=== PATIENT | male | born 1935 | race Hispanic/Latino ===

== ENCOUNTER 2020-01-11 15:53 | Inpatient (IN) | payer MEDICARE, OTHER ==
[~2020-01-11] VITALS: Ht 170.2 cm; Wt 103.9 kg
[2020-01-11] MEDS: CEFTRIAXONE SOD 1 GM/NS 50 ML 50 ML IV SCH (16:40)
[2020-01-11 16:45] LABS: EOSINOPHILS % 1.1 % (0.0-6.0); HEMATOCRIT 43.9 % (38.2-49.6); HEMOGLOBIN 14.8 g/dL (14.0-18.0); LYMPHOCYTES # (AUTO) 0.7 (1.0-3.2); LYMPHOCYTES % 14.6 % (18.0-39.1); MEAN CORPUSCULAR HEMOGLOBIN 30.3 pg (28-32); MEAN CORPUSCULAR HGB CONC 33.7 g/dL (31-35); MEAN CORPUSCULAR VOLUME 89.8 fL (81-99); NEUTROPHILS # (AUTO) 3.4 (2.1-6.9); NEUTROPHILS % 75.9 % (38.7-80.0); PLATELET COUNT 114 x10e3/uL (140-360); RED BLOOD COUNT 4.89 x10e6/uL (4.3-5.7); RED CELL DISTRIBUTION WIDTH 13.4 % (11.7-14.4)
[2020-01-11 16:46] LABS: EOSINOPHILS # (AUTO) 0.1 (0.0-0.4); MONOCYTES # (AUTO) 0.4 (0.2-0.8)
[2020-01-11 16:59] LABS: INR 1.09; PROTHROMBIN TIME 14.8 seconds (11.9-14.5)
[2020-01-11 17:00] LABS: PARTIAL THROMBOPLASTIN TIME 30.4 seconds (23.8-35.5)
[2020-01-11] MEDS: AZITHROMYCIN 500MG/NS 250 ML 250 ML IV SCH (17:00)
[2020-01-11 17:07] LABS: ALANINE AMINOTRANSFERASE 35 IU/L (0-55); ALBUMIN 3.7 g/dL (3.5-5.0); ALBUMIN/GLOBULIN RATIO 1.2 (0.8-2.0); ALKALINE PHOSPHATASE 82 IU/L (40-150); ANION GAP 11.1 mmol/L (8-16); BLOOD UREA NITROGEN 9 mg/dL (7-26); BUN/CREATININE RATIO 11 (6-25); CALCIUM 9.1 mg/dL (8.4-10.2); CARBON DIOXIDE 29 mmol/L (22-29); CHLORIDE 103 mmol/L (98-107); CREATINE KINASE 242 IU/L (30-200); CREATININE, SERUM 0.82 mg/dL (0.72-1.25); EST GLOMERULAR FILTRATION RATE > 60 ML/MIN (60-); GLUCOSE 102 mg/dL (74-118); POTASSIUM 4.1 mmol/L (3.5-5.1); SODIUM 139 mmol/L (136-145)
[2020-01-11 17:25] LABS: BILIRUBIN,URINE NEGATIVE (NEGATIVE); CLARITY,URINE SL CLOUDY (CLEAR); COLOR,URINE YELLOW (YELLOW); KETONES,URINE NEGATIVE (NEGATIVE); LEUKOCYTE ESTERASE ,URINE NEGATIVE (NEGATIVE); NITRITE,URINE NEGATIVE (NEGATIVE); PROTEIN,URINE DIPSTICK NEGATIVE (NEGATIVE); URINE UROBILINOGEN 0.2 mg/dL (0.2 - 1)
--- NOTE | 2020-01-11 17:25 | Diagnostic Imaging Report ---
EXAMINATION: CHEST SINGLE (PORTABLE) INDICATION: Shortness of breath COMPARISON: None FINDINGS: AP view TUBES and LINES: None. LUNGS/PLEURA: Lungs are well inflated. There is left basilar opacity is likely atelectasis.. There is no pleural effusion or pneumothorax. HEART AND MEDIASTINUM: The cardiomediastinal silhouette is unremarkable. BONES AND SOFT TISSUES: No acute osseous lesion. Soft tissues are unremarkable. UPPER ABDOMEN: No free air under the diaphragm. IMPRESSION: Left basilar opacity is likely atelectasis. Signed by: Jovan Bates MD on 01/11/2020 5:22 PM
[2020-01-11] MEDS ORDERED: ALBUTEROL SULFATE HFA 8GM INHALATION AEROSOL INH PRN (17:30)
[2020-01-11 17:38] LABS: WBC,URINE (MAN) 0-5 /HPF (0-5)
[2020-01-11 17:39] LABS: BACTERIA,URINE RARE /HPF; EPITHELIAL CELLS,URINE FEW /LPF
[2020-01-11] MEDS ORDERED: ENOXAPARIN SODIUM INJ 100 MG/ML SYR SC ONE (19:15)
--- NOTE | 2020-01-11 19:57 | Emergency Department Note ---
History of Present Illnes History of Present Illness Chief Complaint: COVID PUI History of Present Illness This is a 84 year old male PATIENT IN FROM HOME WITH COMPLAINTS OF SHORTNESS OF BREATH, COUGH, AND CP X 2 DAYS; RATES PAIN 5/10. PATIENT TACHYPNEIC IN TRIAGE, ALERT AND ORIENTED, AMBULATORY WITHOUT ASSISTANCE. Historian: Patient Arrival Mode: Car Vac Press Operator Required: Yes Onset (how long ago): day(s) (2) Location: CHEST Quality: PAIN Radiation: Reports non-radiation Severity: moderate Onset quality: gradual Timing of current episode: constant Progression: unchanged Chronicity: new Context: Reports recent illness Relieving factors: none Exacerbating factors: none Associated symptoms: Reports chest pain, Reports cough, Reports shortness of breath Treatments prior to arrival: none (JAMES OLIVEROS MD) Past Medical/Family History Physician Review I have reviewed the patient's past medical and family history. Any updates have been documented here. (JAMES OLIVEROS MD) Past Medical History Recent Fever: Yes Clinical Suspicion of Infectio: Yes New/Unexplained Change in Ment: No Past Medical History: Hypertension, Diabetes, CHF, AL, Asthma, GERD, Hyperlipedemia Other Medical History: BPH Past Surgical History: Appendectomy, CABG (JAMES OLIVEROS MD) Social History Smoking Cessation: Former smoker Alcohol Use: None Any Illegal Drug Use: No TB Exposure/Symptoms: No Physically hurt or threatened: No (JAMES OLIVEROS MD) Family History Family history of heart diseas: No (JAMES OLIVEROS MD) Other Last Tetanus: UNKNOWN Any Pre-Existing Lines (PICC,: No Is patient up to date on immun: Yes Last Flu: unknown Last Pneumovax: unknown (JAMES OLIVEROS MD) Review of Systems Review of Systems Constitutional: Reports no symptoms EENTM: Reports no symptoms Cardiovascular: Reports as per HPI Respiratory: Reports as per HPI Gastrointestinal: Reports no symptoms Genitourinary: Reports no symptoms Musculoskeletal: Reports no symptoms Integumentary: Reports no symptoms Neurological: Reports no symptoms Psychological: Reports no symptoms Endocrine: Reports no symptoms Hematological/Lymphatic: Reports no symptoms (JAMES OLIVEROS MD) Physical Exam Related Data Allergies: Coded Allergies: Penicillins (Verified Allergy, Severe, A CHILD, 01/11/20) Triage Vital Signs Vital Signs Date Time Temp Pulse Resp B/P (MAP) Pulse Ox O2 Delivery O2 Flow Rate FiO2 6/24/20 15:58 99.8 82 26 160/84 94 Vital signs reviewed: Yes (JAMES OLIVEROS MD) Physical Exam CONSTITUTIONAL Constitutional: Present well-developed, Present well-nourished HENT HENT: Present normocephalic, Present atraumatic, Present oropharynx clear/moist, Present nose normal HENT L/R: Present left ext ear normal, Present right ext ear normal EYES Eyes: Reports PERRL, Reports conjunctivae normal NECK Neck: Present ROM normal PULMONARY Pulmonary: Present respiratory distress (MILD), Present other (DECR BREATH SOUNDS THROUGHOUT) CARDIOVASCULAR Cardiovascular: Present irregular rhythm, Present normal rate GASTROINTESTINAL Abdominal: Present soft, Present nontender, Present bowel sounds normal GENITOURINARY Genitourinary: Present exam deferred SKIN Skin: Present warm, Present dry MUSCULOSKELETAL Musculoskeletal: Present ROM normal NEUROLOGICAL Neurological: Present alert, Present oriented x 3, Present no gross motor or sensory deficits PSYCHOLOGICAL Psychological: Present mood/affect normal, Present judgement normal (JAMES OLIVEROS MD) Results Laboratory Result Diagram: 01/11/20 1606 01/11/20 1606 Laboratory Laboratory Tests Test 01/11/20 18:21 01/11/20 17:13 01/11/20 16:06 Lactic Acid Level 1.4 mmol/L (0.5-2.0) Urine Color Yellow (YELLOW) Urine Clarity Sl cloudy (CLEAR) Urine pH 7.5 (5 - 7) Urine Specific [place] 1.020 (1.010-1.025) Urine Protein Negative (NEGATIVE) Urine Glucose (UA) Negative (NEGATIVE) Urine Ketones Negative (NEGATIVE) Urine Blood Negative (NEGATIVE) Urine Nitrite Negative (NEGATIVE) Urine Bilirubin Negative (NEGATIVE) Urine Urobilinogen 0.2 mg/dL (0.2 - 1) Urine Leukocyte Esterase Negative (NEGATIVE) Urine RBC None /HPF (0-5) Urine WBC 0-5 /HPF (0-5) Urine Epithelial Cells Few /LPF (NONE) Urine Bacteria Rare /HPF (NONE) White Blood Count 4.51 x10e3/uL (4.8-10.8) Red Blood Count 4.89 x10e6/uL (4.3-5.7) Hemoglobin 14.8 g/dL (14.0-18.0) Hematocrit 43.9 % (38.2-49.6) Mean Corpuscular Volume 89.8 fL (81-99) Mean Corpuscular Hemoglobin 30.3 pg (28-32) Mean Corpuscular Hemoglobin Concent 33.7 g/dL (31-35) Red Cell Distribution Width 13.4 % (11.7-14.4) Platelet Count 114 x10e3/uL (140-360) Neutrophils (%) (Auto) 75.9 % (38.7-80.0) Lymphocytes (%) (Auto) 14.6 % (18.0-39.1) Monocytes (%) (Auto) 8.0 % (4.4-11.3) Eosinophils (%) (Auto) 1.1 % (0.0-6.0) Basophils (%) (Auto) 0.0 % (0.0-1.0) Neutrophils # (Auto) 3.4 (2.1-6.9) Lymphocytes # (Auto) 0.7 (1.0-3.2) Monocytes # (Auto) 0.4 (0.2-0.8) Eosinophils # (Auto) 0.1 (0.0-0.4) Basophils # (Auto) 0.0 (0.0-0.1) Absolute Immature Granulocyte (auto 0.02 x10e3/uL (0-0.1) Prothrombin Time 14.8 seconds (11.9-14.5) Prothromb Time International Ratio 1.09 Activated Partial Thromboplast Time 30.4 seconds (23.8-35.5) Sodium Level 139 mmol/L (136-145) Potassium Level 4.1 mmol/L (3.5-5.1) Chloride Level 103 mmol/L (98-107) Carbon Dioxide Level 29 mmol/L (22-29) Anion Gap 11.1 mmol/L (8-16) Blood Urea Nitrogen 9 mg/dL (7-26) Creatinine 0.82 mg/dL (0.72-1.25) Estimat Glomerular Filtration Rate > 60 ML/MIN (60-) BUN/Creatinine Ratio 11 (6-25) Glucose Level 102 mg/dL (74-118) Calcium Level 9.1 mg/dL (8.4-10.2) Total Bilirubin 0.5 mg/dL (0.2-1.2) Aspartate Amino Transf (AST/SGOT) 34 IU/L (5-34) Alanine Aminotransferase (ALT/SGPT) 35 IU/L (0-55) Alkaline Phosphatase 82 IU/L (40-150) Creatine Kinase 242 IU/L (30-200) Creatine Kinase MB 4.80 ng/mL (0-5.0) Troponin I 0.009 ng/mL (0-0.300) B-Type Natriuretic Peptide 196.8 pg/mL (0-100) Total Protein 6.9 g/dL (6.5-8.1) Albumin 3.7 g/dL (3.5-5.0) Globulin 3.2 g/dL (2.3-3.5) Albumin/Globulin Ratio 1.2 (0.8-2.0) Lab results reviewed: Yes (JAMES OLIVEROS MD) Imaging Imaging results reviewed: Yes Impressions EXAMINATION: CHEST SINGLE (PORTABLE) INDICATION: Shortness of breath COMPARISON: None FINDINGS: AP view TUBES and LINES: None. LUNGS/PLEURA: Lungs are well inflated. There is left basilar opacity is likely atelectasis.. There is no pleural effusion or pneumothorax. HEART AND MEDIASTINUM: The cardiomediastinal silhouette is unremarkable. BONES AND SOFT TISSUES: No acute osseous lesion. Soft tissues are unremarkable. UPPER ABDOMEN: No free air under the diaphragm. IMPRESSION: Left basilar opacity is likely atelectasis. Signed by: Jovan Bates MD on 01/11/2020 5:22 PM (JAMES OLIVEROS MD) Procedures 12 Lead ECG Interpretation ECG Interpretation : ECG: ECG 1 Vac Press Operator: Interpreted by ED physician Date: Jan 11, 2020 Time: 16:14 Rhythm: atrial fibrillation QRS axis: left Conduction: right bundle branch block ST segments normal: Yes T wave inversion: III Clinical Impression: abnormal ECG (JAMES OLIVEROS MD) Assessment & Plan Medical Decision Making MDM CHECK CBC, CHEM, CARDIACS, ECG, COVID SWAB, CXR, UA, PANCX'S - R/O PNEUMONIA, COVID19, STEMI/NSTEMI, ELECTROLYTE ABNL, UTI, SEPSIS (JAMES OLIVEROS MD) Reassessment Reassessment PT IS A VERY POOR HISTORIAN, UNKNOWN H/O AFIB BUT HE IS ON COUMADIN. HE IS NOT THERAPEUTIC ON COUMADIN, WILL GIVE DOSE OF LOVENOX. HE PRESENTS LIKE COVID BUT WILL ALSO NEED ADMISSION TO R/O ACS. COVID TEST PENDING - REPORT TO DR DEVIN SORIA TO DISPO PT (JAMES OLIVEROS MD) Assessment & Plan Final Impression: (1) Chronic a-fib (2) COVID-19 (3) Chest pain (4) Viral pneumonia (JONO GIBSON MD) Depart Disposition: ADMITTED Last Vital Signs Date Time Temp Pulse Resp B/P (MAP) Pulse Ox O2 Delivery O2 Flow Rate FiO2 01/11/20 17:26 99.3 85 18 163/83 100 (JAMES OLIVEROS MD) Home Meds Reported Medications Oxybutynin Chloride (OXYBUTYNIN CHLORIDE) 5 Mg Tablet, 5 MG PO DAILY 01/11/20 Warfarin Sodium (COUMADIN) 5 Mg Tablet, 5 MG PO DAILY 01/11/20 Atorvastatin Calcium (ATORVASTATIN CALCIUM) 20 Mg Tablet, 40 MG PO DAILY 01/11/20 [Tamsulosin] .5 MG No Conflict Check, PO DAILY 01/11/20 Metoprolol Succinate (METOPROLOL SUCCINATE) 50 Mg Tab.er.24h, 50 MG PO DAILY 01/11/20 Amlodipine Besylate (AMLODIPINE BESYLATE) 5 Mg Tablet, 5 MG PO DAILY 01/11/20 Metformin Hcl (METFORMIN HCL) 500 Mg Tablet, 1 TAB PO DAILY 01/11/20 Glimepiride (GLIMEPIRIDE) 2 Mg Tablet, 2 MG PO DAILY 01/11/20 Furosemide (FUROSEMIDE) 40 Mg Tablet, 20 MG PO DAILY 01/11/20 Medications in the ED Ceftriaxone Sodium 50 ml @ 100 mls/hr Q24H IV Last administered on 01/11/20at 16:40; Admin Dose 100 MLS/HR; Start 01/11/20 at 16:30; Stop 01/18/20 at 16:29 Azithromycin 250 ml @ 200 mls/hr DAILY IV Last administered on 01/11/20at 17 :00; Admin Dose 200 MLS/HR; Start 01/11/20 at 16:30; Stop 01/18/20 at 16:29 Albuterol RQ2H PRN INH SHORTNESS OF BREATH; Start 01/11/20 at 17:30; Stop 02/10/20 at 17:29 Enoxaparin Sodium 100 mg ONCE ONCE SC ; Start 01/11/20 at 19:15; Stop 01/11/20 at 19:16; Status DC (JAMES OLIVEROS MD) JAMES OLIVEROS MD Jan 11, 2020 19:57 JONO GIBSON MD Jan 12, 2020 01:00
[2020-01-11] MEDS ORDERED: AMLODIPINE BESYL5 MG PO (22:13)
[2020-01-11] MEDS ORDERED: TAMSULOSIN PO (22:13)
[2020-01-11] MEDS ORDERED: GLIMEPIRIDE2 MG PO (22:13)
[2020-01-11] MEDS ORDERED: METFORMIN HCL500 MG PO (22:13)
[2020-01-11] MEDS ORDERED: OXYBUTYNIN CHLOR5 MG PO (22:13)
[2020-01-11] MEDS ORDERED: FUROSEMIDE40 MG PO (22:13)
[2020-01-11] MEDS ORDERED: ATORVASTATIN CA20 MG PO (22:13)
[2020-01-11] MEDS ORDERED: METOPROLOL SUCC50 MG PO (22:13)
[2020-01-11] MEDS ORDERED: WARFARIN SODIUM5 MG PO (22:13)
[2020-01-12] VITALS (7 sets, daily range): BP systolic 108–137; BP diastolic 61–94
[2020-01-12] MEDS ORDERED: CEFTRIAXONE SOD 1 GM/NS 50 ML 50 ML IV SCH (01:00)
[2020-01-12] MEDS ORDERED: DEXTROSE 50% SYRINGE 50 ML IV PRN (01:00)
[2020-01-12] MEDS ORDERED: SODIUM CHLORIDE FLUSH 10 ML SYR INJ PRN (01:00)
[2020-01-12] MEDS ORDERED: ONDANSETRON HCL INJ 2MG/ML 2ML 2 MG/ML VIAL IV PRN (01:00)
[2020-01-12] MEDS ORDERED: AZITHROMYCIN 500MG/NS 250 ML 250 ML IV SCH (01:00)
[2020-01-12 07:15] LABS: CHOL/HDL RATIO 3.4 (3.9-4.7)
[2020-01-12] MEDS: INSULIN REGULAR, HUMAN 100 UNIT/1 ML 3ML VIAL SQ SCH ×4 (07:30→20:30)
[2020-01-12 07:31] LABS: CREATINE KINASE MB 4.2 ng/mL (0-5.0)
[2020-01-12] MEDS ORDERED: SODIUM CHLORIDE 0.9% 250ML 250 ML ONE (08:06)
[2020-01-12] MEDS: AZITHROMYCIN 500MG/NS 250 ML 250 ML IV SCH (08:51)
[2020-01-12] MEDS: METOPROLOL SUCCINATE 50 MG TAB XL PO SCH (08:52)
[2020-01-12] MEDS: AMLODIPINE BESYLATE 5 MG TAB PO SCH (08:52)
[2020-01-12] MEDS: APIXABAN 5 MG TABLET PO SCH ×2 (08:52→17:12)
[2020-01-12] MEDS: DOCUSATE SODIUM 100 MG CAP PO PRN (08:53)
[2020-01-12] MEDS ORDERED: ATORVASTATIN 20 MG TAB PO SCH (09:00)
--- NOTE | 2020-01-12 09:20 | Consultation ---
DATE OF CONSULTATION: Pulmonary Critical Care Consultation CHIEF COMPLAINT: Cough, congestion, and fevers for 5 days. HISTORY OF PRESENT ILLNESS: The patient is an 84-year-old man. He has a history of a coronary artery bypass grafting three years ago along with diabetes and atrial fibrillation. He reports increased congestion and cough for 5 days. He has noted some fevers. He does not complain of any chest pain. He is not having any nausea or vomiting. PAST SURGICAL HISTORY: Status post coronary artery bypass grafting in 2017. PAST MEDICAL HISTORY: 1. Diabetes. 2. Paroxysmal atrial fibrillation. 3. Benign prostatic hypertrophy. 4. History of asthma as a child. ALLERGIES: THE PATIENT IS ALLERGIC TO PENICILLIN. SOCIAL HISTORY: The patient has never been a smoker. He has never been a drinker. FAMILY HISTORY: Noncontributory. REVIEW OF SYSTEMS: The patient denies any fever. He has no headache. He has no neck pain. He is not having any chest pain. He does note some cough and some dyspnea. He also has some phlegm production. He denies any abdominal pain. There is no nausea or vomiting. He has no leg edema. He has no cyanosis or clubbing. He denies any neurological complaints. PHYSICAL EXAMINATION: VITAL SIGNS: Blood pressure is 108/84 and the saturation is 93% on room air. The pulse is 98. HEENT: No facial swelling or erythema. CARDIAC: Regular rate and rhythm with normal S1, S2. LUNGS: Auscultation of lungs reveals rhonchorous breath sounds bilaterally. There is no wheezing. ABDOMEN: Soft, nontender. There is no rebound or guarding. EXTREMITIES: No leg edema or calf tenderness. There is no cyanosis or clubbing. SKIN: No rashes. NEUROLOGICAL: No focal abnormalities. LABORATORY DATA: The BUN to creatinine ratio is normal. The other electrolytes are within normal limits. The liver function tests are normal. The white blood cell count is 4.5 and hemoglobin is 14.8. The platelet count is 114. RADIOGRAPHIC DATA: Chest x-ray shows a left basilar opacity. IMPRESSION: 1. Viral pneumonia and coronavirus disease-19 infection. 2. Coronary artery disease. 3. Paroxysmal atrial fibrillation. 4. Chronic systolic heart failure. 5. Benign prostatic hypertrophy. PLAN: 1. Continue Rocephin and Zithromax. 2. Dexamethasone. 3. Monitor and control blood sugars. 4. Continue current cardiac regimen. 5. Oxygen. 6. Out of bed as tolerated. MD REHAN Coley/MARI /[id number]
[2020-01-12] MEDS ORDERED: DEXAMETHASONE SOD PHOS 10 MG/1 ML VIAL IV ONE (09:30)
[2020-01-12] MEDS ORDERED: ALBUTEROL SULFATE HFA 8GM INHALATION AEROSOL INH PRN (11:00)
[2020-01-12] MEDS: CHOLECALCIFEROL 400 UNIT TAB PO SCH (12:03)
[2020-01-12] MEDS: ASCORBIC ACID 500 MG TAB PO SCH (12:03)
[2020-01-12] MEDS: ZINC SULFATE 220 MG CAP PO SCH (12:03)
[2020-01-12 14:48] LABS: CREATINE KINASE MB 4.3 ng/mL (0-5.0)
--- NOTE | 2020-01-12 16:23 | NUR ---
Patient has been screened by PT, he is currently ambulating and performing mobility without assistance. Skilled PT services not indicated at this time. Thank you. Addendum: 01/12/20 at 1626 by Avinash juárez PT Amended: Links added.
[2020-01-12] MEDS ORDERED: ENOXAPARIN SOD INJ 40 MG/0.4 ML SYR SC SCH (17:00)
[2020-01-12] MEDS: CEFTRIAXONE SOD 1 GM/NS 50 ML 50 ML IV SCH (17:12)
[2020-01-12] MEDS: GUAIFENESIN/DEXTROMETHORPHAN LIQD 5 ML UDC PO PRN ×2 (17:15→20:51)
--- NOTE | 2020-01-12 17:50 | Consultation ---
DATE OF CONSULTATION: REASON FOR CONSULTATION: Pneumonia, COVID-19. HISTORY OF PRESENT ILLNESS: This is an 84-year-old male with history of obesity and hypertension, who comes into the emergency room with shortness of breath and cough for the last 2 days. He is currently on 2 L. The patient also has history of hypercholesteremia. HOME MEDICATIONS: He is on amlodipine, Eliquis, atorvastatin, metoprolol. PAST SURGICAL HISTORY: He denies. ALLERGIES: HE CLAIMS NOW TO PENICILLIN BUT HE DID WELL WITH ROCEPHIN. SOCIAL HISTORY: There is no smoking, drug abuse, or alcohol abuse. PAST MEDICAL HISTORY: Diabetes mellitus, obesity, paroxysmal atrial fibrillation, benign prostatic hypertrophy, and asthma. FAMILY HISTORY: Hypertension. REVIEW OF SYSTEMS: He is just weak with fever sensation. Dry cough and shortness of breath, mainly with exertion. Otherwise, all other systems within normal limits. PHYSICAL EXAMINATION: GENERAL: He is currently alert, oriented, does not seem to be in acute distress. VITAL SIGNS: Stable, currently afebrile. HEENT: He is not icteric. NECK: Supple. CHEST: Few crackles bilateral. HEART: S1 and S2. No murmurs. ABDOMEN: Soft. LABORATORY DATA: Reviewed. White count 4.51, hemoglobin 14, platelet 114. His PCR was positive. His sodium 139, potassium 4.1 creatinine 0.82. Lactic acid 1.4, glucose of 102. currently on 2 L. IMPRESSION: COVID-19 present on admission, respiratory failure, obesity, atrial fibrillation, component of congestive heart failure. We will give Rocephin 2 g daily for 5 days, azithromycin 5 mg IV daily for 3 days, Lovenox 40 mg daily. The patient, however, remains on Eliquis. Continue with Flomax, vitamin C, vitamin D and zinc supplement. We will discuss with Dr. Perea. MD LUCIEN Das/MODL /[id number]
--- NOTE | 2020-01-12 18:12 | NUR ---
H&P DOS 01-12-20 at 10a m CC: SOB HPI: 84yoM, PCP??, developed sob, found to be positive for COVID19. Pt unable to provide any history due to fatigue. PMH: Dm2, HTn, HLD, BPH, Chr A.fib PHSx; unknown Allergie;s see emr Fh/Sh; no illicits meds; see MAR ROS; unobtainable v/s revd PE tired appearing anicteric ns1s2 REDUCED BREATHSOUNDS soft nt nd no e/t skin dry n. affect awake; santana labs/meds revd A/P: Viral PNA- IV abx COVID19 infection- supporitve Chr A.fib- HR control HTN- home med HLD- meds BPH- flomax DM2- hab1c/lipds; ssi prop; scd Dipso; monitor closely Gray Rogers MD, PhD.
--- NOTE | 2020-01-12 19:00 | Consultation ---
DATE OF CONSULTATION: 01/12/2020 Cardiology Consultation REQUESTING PHYSICIAN: Gray Rogers MD REASON FOR CONSULTATION: Chest pain. HISTORY OF PRESENT ILLNESS: This is an 84-year-old male with history of hypertension, hyperlipidemia, diabetes mellitus, congestive heart failure, who presents with complaints of cough, shortness of breath and chest pain. The patient reports that he has been having cough for the last 5 or 6 days. He developed central chest pain in the last three or four days. He describes it as 6/10 in severity, occurring after he coughs. Denies any radiation, nausea, or diaphoresis. He denies any lower extremity edema or palpitations. Denies any fever, chills, or sick contacts. On evaluation in the ER, he was found to be positive for COVID-19 and admitted for further care. REVIEW OF SYSTEMS: Negative except as per HPI. PAST MEDICAL HISTORY: 1. Hypertension. 2. Hyperlipidemia. 3. Diabetes mellitus. 4. Congestive heart failure. PAST SURGICAL HISTORY: 1. The patient reports valve replacement, although EMR documents history of CABG. 2. Appendectomy. SOCIAL HISTORY: Denies any illicit drugs. He quit smoking 40 years ago, previously smoked approximately one cigar a day. Drinks alcohol on occasion. FAMILY HISTORY: Noncontributory to current illness. ALLERGIES: PLEASE SEE EMR. MEDICATIONS: Please see medication list. PHYSICAL EXAMINATION: VITAL SIGNS: Temperature 97.3 degrees, pulse 74, respiratory 24, blood pressure 127/61, oxygen saturation 99% on 2 L nasal cannula. The patient was not examined. LABORATORY DATA: WBC 4.5, hemoglobin 14.8, hematocrit 43.9, platelets 114. Sodium 139, potassium 4.1, chloride 103, CO2 29, BUN 9, creatinine 0.82. BNP 197. Troponin 0.02 30 0.163, CK 280. Chest x-ray left basilar opacity is likely atelectasis. TELEMETRY: Telemetry was personally reviewed and interpreted, revealing atrial fibrillation. IMPRESSION: 1. COVID-19 pneumonia. 2. Chest pain. 3. Elevated BNP. 4. Atrial fibrillation. 5. Reported history of congestive heart failure. 6. Hypertension. 7. Hyperlipidemia. 8. Diabetes mellitus. RECOMMENDATIONS: The patient has ruled out for myocardial infarction with serial cardiac biomarkers. The patient denies history of coronary artery bypass and instead reports a history of valve replacement in 2017. Obtain echocardiogram for further evaluation. Monitor the patient closely on telemetry. Continue Eliquis for CVA prophylaxis. Continue home cardiac medications otherwise. If echo is unremarkable, no further ischemic evaluation will be indicated at this time. Treatment of COVID-19 per Infectious Disease. Continue supportive care. Thank you for this consult. We will continue to follow. Lynn Boyer MD ABS/MODL /[id number]
[2020-01-12] MEDS: ZOLPIDEM TARTRATE 5 MG TAB PO PRN (20:51)
[2020-01-12] MEDS: TAMSULOSIN HCL 0.4 MG CAP PO SCH (20:51)
[2020-01-13] VITALS (8 sets, daily range): BP systolic 128–168; BP diastolic 65–99
[2020-01-13 05:23] LABS: HEMATOCRIT 43.2 % (38.2-49.6); HEMOGLOBIN 14.4 g/dL (14.0-18.0); LYMPHOCYTES # (AUTO) 0.8 (1.0-3.2); LYMPHOCYTES % 14.1 % (18.0-39.1); MEAN CORPUSCULAR HEMOGLOBIN 29.5 pg (28-32); MEAN CORPUSCULAR HGB CONC 33.3 g/dL (31-35); MEAN CORPUSCULAR VOLUME 88.5 fL (81-99); MONOCYTES # (AUTO) 0.3 (0.2-0.8); MONOCYTES % 5.6 % (4.4-11.3); NEUTROPHILS # (AUTO) 4.4 (2.1-6.9); NEUTROPHILS % 79.9 % (38.7-80.0); PLATELET COUNT 122 x10e3/uL (140-360); RED BLOOD COUNT 4.88 x10e6/uL (4.3-5.7); RED CELL DISTRIBUTION WIDTH 13.2 % (11.7-14.4)
[2020-01-13 05:50] LABS: ALANINE AMINOTRANSFERASE 31 IU/L (0-55); ALBUMIN 3.3 g/dL (3.5-5.0); ALBUMIN/GLOBULIN RATIO 1.1 (0.8-2.0); ALKALINE PHOSPHATASE 68 IU/L (40-150); ANION GAP 12.4 mmol/L (8-16); BLOOD UREA NITROGEN 12 mg/dL (7-26); BUN/CREATININE RATIO 16 (6-25); CALCIUM 9.1 mg/dL (8.4-10.2); CARBON DIOXIDE 26 mmol/L (22-29); CHLORIDE 108 mmol/L (98-107); CREATININE, SERUM 0.77 mg/dL (0.72-1.25); EST GLOMERULAR FILTRATION RATE > 60 ML/MIN (60-); GLUCOSE 171 mg/dL (74-118); POTASSIUM 4.4 mmol/L (3.5-5.1); SODIUM 142 mmol/L (136-145)
--- NOTE | 2020-01-13 06:50 | NUR ---
RECEIVED BEDSIDE SHIFT REPORT FROM OFF GOING NURSE. PATIENT IS RESTING IN BED. NO ACUTE DISTRESS NOTED. CALL LIGHT WITHIN REACH. BED IN THE LOWEST POSITION.
--- NOTE | 2020-01-13 07:23 | NUR ---
IM- progress note O/N see below ROS; unobtainable v/s revd PE tired appearing anicteric ns1s2 REDUCED BREATHSOUNDS soft nt nd no e/t skin dry n. affect awake; santana labs/meds revd A/P: Viral PNA- IV abx COVID19 infection- supporitve Chr A.fib- HR control HTN- home med HLD- meds BPH- flomax DM2- hab1c/lipds; ssi prop; scd Dipso; monitor closely 01/12 improving; cont care; Gray Rogers MD, PhD.
--- NOTE | 2020-01-13 07:32 | Progress Note ---
DATE: SUBJECTIVE: The patient still reports some fatigue. He is short of breath with exertion. He reports some cough. He does not complain of chest pain or fevers. OBJECTIVE: VITAL SIGNS: The blood pressure is 144/66 and the saturation is 98%. HEENT: Shows no facial swelling or erythema. CARDIAC: Reveals a regular rate and rhythm with normal S1, S2. LUNGS: Auscultation of lungs reveals rhonchorous breath sounds bilaterally. There is no wheezing. ABDOMEN: Soft and nontender. There is no rebound or guarding. EXTREMITIES: Shows no leg edema or calf tenderness. There is no cyanosis or clubbing. SKIN: Shows no rashes. NEUROLOGICAL: Shows no focal abnormalities. LABORATORY DATA: CBC is within normal limits. The CMP is within normal limits. IMPRESSION: 1. Viral pneumonia and COVID-19 infection. 2. Paroxysmal atrial fibrillation. 3. Chronic systolic congestive heart failure. 4. Benign prostatic hypertrophy. PLAN: 1. Continue Rocephin and Zithromax. 2. Dexamethasone. 3. Monitor and control blood sugars. 4. Oxygen. 5. Cough suppressants as needed. 6. Physical therapy. 7. Continue to observe in the hospital for now. Stuart Perea MD [facility]/MARI /[id number]
--- NOTE | 2020-01-13 07:52 | Diagnostic Imaging Report ---
Examination: Single AP view of the chest. COMPARISON: AP chest 01/11/2020 INDICATION: Respiratory failure IMPRESSION: 1. Lines and Tubes: None 2. Lungs are well-inflated. Patchy opacity in the left lower lung likely representing atelectasis. No consolidation or effusion. 3. Cardiomediastinal silhouette is normal. Pulmonary vasculature is normal. 4. No acute bony abnormalities. Signed by: Dr. Wilber Schmidt M.D. on 01/13/2020 7:49 AM
[2020-01-13] MEDS: INSULIN REGULAR, HUMAN 100 UNIT/1 ML 3ML VIAL SQ SCH ×3 (08:25→16:53)
[2020-01-13] MEDS ORDERED: DEXAMETHASONE SOD PHOS 10 MG/1 ML VIAL IV SCH (09:00)
[2020-01-13] MEDS: AZITHROMYCIN 500MG/NS 250 ML 250 ML IV SCH (09:13)
[2020-01-13] MEDS: ATORVASTATIN 40 MG TAB PO SCH (09:13)
[2020-01-13] MEDS: AMLODIPINE BESYLATE 5 MG TAB PO SCH (09:13)
[2020-01-13] MEDS: APIXABAN 5 MG TABLET PO SCH ×2 (09:13→16:30)
[2020-01-13] MEDS: METOPROLOL SUCCINATE 50 MG TAB XL PO SCH (09:14)
[2020-01-13] MEDS: CHOLECALCIFEROL 400 UNIT TAB PO SCH (09:14)
[2020-01-13] MEDS: GUAIFENESIN/DEXTROMETHORPHAN LIQD 5 ML UDC PO PRN ×2 (09:14→21:10)
[2020-01-13] MEDS: ASCORBIC ACID 500 MG TAB PO SCH (09:14)
[2020-01-13] MEDS: ZINC SULFATE 220 MG CAP PO SCH (09:14)
[2020-01-13 10:45] LABS: PLATELET ESTIMATE SLIGHTLY DECREASED; PLATELET MORPHOLOGY COMMENT NORMAL; RBC MORPHOLOGY COMMENT NORMAL
[2020-01-13] MEDS ORDERED: FUROSEMIDE INJ 10 MG/ML 2 ML VIAL IV ONE (11:45)
--- NOTE | 2020-01-13 12:34 | Progress Note ---
DATE: 01/13/2020 Cardiology Progress Note. SUBJECTIVE: The patient was discussed with nursing staff. He continues to have cough, but does not complain of chest pain. He continues to require supplemental oxygen via nasal cannula. OBJECTIVE: VITAL SIGNS: Temperature 97.6 degrees, pulse 71, respiratory rate 22, blood pressure 149/75, oxygen saturation 98%. The patient was not examined. CARDIAC MEDICATIONS: 1. Metoprolol succinate 50 mg p.o. daily. 2. Atorvastatin 40 mg p.o. daily. 3. Amlodipine 5 mg p.o. daily. 4. Apixaban 5 mg p.o. b.i.d. LABORATORY DATA: WBC 5.55, hemoglobin 14.4, hematocrit 43.2, platelets 122. Sodium 140, potassium 4.4, chloride 108, CO2 of 26, BUN 12, and creatinine 0.77. Telemetry was personally reviewed and interpreted, revealing atrial fibrillation, rate controlled. IMPRESSION: 1. COVID-19 viral pneumonia. 2. Chest pain. 3. Elevated BNP. 4. Atrial fibrillation. 5. Hypertension. 6. Hyperlipidemia. 7. Diabetes mellitus. RECOMMENDATIONS: Echocardiogram was reviewed. Study was technically difficult, but the ejection fraction appears to be preserved. Continue current cardiac medications, gentle diuretics. The patient's heart rate is controlled. Monitor patient closely on telemetry. Continue Eliquis for CVA prophylaxis. Treatment of COVID-19 per Infectious Disease. Continue supportive care. No further ischemic evaluation is warranted at this time. Thank you for this consult. We will continue to follow. Lynn Boyer MD ABS/MODL /[id number]
--- NOTE | 2020-01-13 15:40 | Progress Note ---
DATE: SUBJECTIVE: Mr. Lobo is doing better today. He continued to have some cough, but overall better. When I saw him, he looks very comfortable. He is on 2 L. OBJECTIVE: VITAL SIGNS: His temperature 97.6, heart rate 71, respirations 22, and O2 saturation 98%. HEENT: He is not icteric. NECK: Supple. CHEST: Few crackles. COR: S1, S2. ABDOMEN: Soft. IMPRESSION AND PLAN: 1. Coronavirus disease-19. Clinically looks very good. He can be discharged home. I think he will be feeling better if he goes home with oxygen. He is little bit anxious about it. 2. Coronavirus disease viral pneumonia. 3. Chest pain. 4. Atrial fibrillation. 5. Hypertension. 6. Hyperlipidemia. 7. Diabetes mellitus. Cardiology is following. From Infectious Disease point of view, to be discharged home with no antibiotic. Continue Eliquis. Continue supportive care. Discussed with medical team. MD LUCIEN Das/MARI /[id number]
[2020-01-13] MEDS: CEFTRIAXONE SOD 1 GM/NS 50 ML 50 ML IV SCH (16:30)
--- NOTE | 2020-01-13 16:41 | NUR ---
SNF eval ordered. Per Dr. Dao's note, pt can discharge home with no abx. PT has also discontinued services. JOELLE spoke with JOEL Hanna who did home O2 eval. Pt was 93% on exertion. CM left message for Dr. Rogers that there is no criteria for SNF.
--- NOTE | 2020-01-13 19:07 | NUR ---
BEDSIDE SHIFT REPORT GIVEN TO ONCOMING NURSE. PATIENT IS RESTING IN BED. NO ACUTE DISTRESS NOTED. CALL LIGHT WITHIN REACH. BED IN THE LOWEST POSITION.
--- NOTE | 2020-01-13 20:16 | NUR ---
Received pt in bed awake, alert and orientated x 4. Denies discomfort at this time, no s/sx of distress noted. O2NC in place. bed in low position call arriola and personal items within reach. Will cont to mon.
[2020-01-13] MEDS: TAMSULOSIN HCL 0.4 MG CAP PO SCH (21:10)
[2020-01-13] MEDS: ACETAMINOPHEN 325 MG TAB PO PRN (21:10)
[2020-01-14] VITALS (8 sets, daily range): BP systolic 104–175; BP diastolic 68–86
[2020-01-14] MEDS: INSULIN REGULAR, HUMAN 100 UNIT/1 ML 3ML VIAL SQ SCH ×5 (00:51→21:00)
[2020-01-14] MEDS: GUAIFENESIN/DEXTROMETHORPHAN LIQD 5 ML UDC PO PRN ×3 (05:23→21:00)
--- NOTE | 2020-01-14 07:54 | NUR ---
ASSUMED CARE. AAOX3. ACYANOTIC. RESTING IN BED. NO DISTRESS NOTED. BED LOW AND LOCKED. CALL LIGHT IN REACH. SIDE RAILS UP X2.
[2020-01-14] MEDS ORDERED: DEXAMETHASONE 4 MG TAB PO SCH (09:00)
[2020-01-14] MEDS: DEXAMETHASONE PHOS 4MG/ML 5ML MULTIDOSE VIAL IV SCH (09:57)
[2020-01-14] MEDS: CHOLECALCIFEROL 400 UNIT TAB PO SCH (09:58)
[2020-01-14] MEDS: ATORVASTATIN 40 MG TAB PO SCH (09:58)
[2020-01-14] MEDS: METOPROLOL SUCCINATE 50 MG TAB XL PO SCH (09:58)
[2020-01-14] MEDS: ZINC SULFATE 220 MG CAP PO SCH (09:58)
[2020-01-14] MEDS: AZITHROMYCIN 500MG/NS 250 ML 250 ML IV SCH (09:58)
[2020-01-14] MEDS: ASCORBIC ACID 500 MG TAB PO SCH (09:58)
[2020-01-14] MEDS: AMLODIPINE BESYLATE 5 MG TAB PO SCH (09:58)
[2020-01-14] MEDS: APIXABAN 5 MG TABLET PO SCH ×2 (09:58→17:14)
--- NOTE | 2020-01-14 10:49 | Progress Note ---
DATE: Cardiology Progress Note SUBJECTIVE: Care discussed with nursing staff. They report no new complaints. The patient has not had any complaints of chest pain, however, occasionally short of breath. Continues to utilize nasal cannula. OBJECTIVE: VITAL SIGNS: Temperature 97.6, pulse 63, respiratory rate 19, blood pressure 151/68, oxygen saturation 100% on 3 L nasal cannula. CARDIOVASCULAR MEDICATIONS: Eliquis 5 mg p.o. b.i.d., metoprolol 50 mg p.o. daily, atorvastatin 40 mg p.o. daily, and amlodipine 5 mg p.o. daily. LABORATORY DATA: No new labs today. Telemetry, no new telemetry strips from this morning. Telemetry strips from yesterday with a rate controlled atrial fibrillation. Echocardiogram from 01/12 with normal left ventricle size, ejection fraction 55% to 60%, mild aortic stenosis noted. IMPRESSION: 1. COVID-19 viral pneumonia. 2. Chest pain. 3. Elevated BNP. 4. Atrial fibrillation. 5. Hypertension. 6. Hyperlipidemia. 7. Diabetes mellitus. RECOMMENDATIONS: Continue with the above-listed cardiac medications. Gentle diureses. Continue Eliquis for CVA prophylaxis. Continue COVID-19 treatment per Infectious Disease. Continue to monitor this patient closely. Supportive care at this time. No ischemic evaluation warranted at this time. We will continue to follow. Dictated by Alee Matos NP MD DAWSON MoraV/MODL /[id number]
--- NOTE | 2020-01-14 12:55 | Progress Note ---
DATE: Pulmonary Critical Care Progress Note SUBJECTIVE: The patient still has some dyspnea with exertion. He is not complaining of fever. He has some cough. PHYSICAL EXAMINATION: VITAL SIGNS: The blood pressure is 151/68 and saturation is 100% on 3 L. HEENT: Shows no facial swelling or erythema. CARDIAC: Reveals regular rate and rhythm with normal S1 and S2. LUNGS: Auscultation of lungs reveals rhonchorous breath sounds bilaterally. There is no wheezing. ABDOMEN: Soft and nontender. There is no rebound or guarding. EXTREMITIES: Shows no leg edema or calf tenderness. There is no cyanosis or clubbing. SKIN: Shows no rashes. NEUROLOGICAL: Shows no focal abnormalities. LABORATORY DATA: CBC is within normal limits. BUN to creatinine is normal. Electrolytes within normal limits. IMPRESSION: 1. Viral pneumonia and COVID-19 infection. 2. Paroxysmal atrial fibrillation. 3. Chronic systolic congestive heart failure. 4. Benign prostatic hypertrophy. PLAN: 1. Continue current antibiotics. 2. Continue dexamethasone. 3. Monitor and control blood sugars. 4. Oxygen. 5. Physical therapy. Stuart Perea MD LM/MODL /[id number]
--- NOTE | 2020-01-14 13:20 | NUR ---
IM- progress note O/N see below ROS; unobtainable v/s revd PE tired appearing anicteric ns1s2 REDUCED BREATHSOUNDS soft nt nd no e/t skin dry n. affect awake; santana labs/meds revd A/P: Viral PNA- IV abx COVID19 infection- supporitve Chr A.fib- HR control HTN- home med HLD- meds BPH- flomax DM2- hab1c/lipds; ssi prop; scd Dipso; monitor closely 01/12 improving; cont care; 01-13 Hba1c/LDL 6.; cont supportive care. Gray Rogers MD, PhD.
[2020-01-14] MEDS: CEFTRIAXONE SOD 1 GM/NS 50 ML 50 ML IV SCH (17:14)
--- NOTE | 2020-01-14 20:19 | NUR ---
Received pt sitting in chair at bedside. A/O pt c/o ambulating to bathroom without oxygen and being sob. Will obtain extension tubing for pt, Resp in to see patient at this time. Call light and personal items within reach. Bed in low and locked position. No acute s/sx of distress will cont to mon.
[2020-01-14] MEDS: TAMSULOSIN HCL 0.4 MG CAP PO SCH (21:00)
[2020-01-14] MEDS: DOCUSATE SODIUM 100 MG CAP PO PRN (21:00)
[2020-01-14] MEDS: ACETAMINOPHEN 325 MG TAB PO PRN (21:00)
[2020-01-14] MEDS: ZOLPIDEM TARTRATE 5 MG TAB PO PRN (23:26)
[2020-01-15] VITALS (7 sets, daily range): BP systolic 133–185; BP diastolic 60–98
--- NOTE | 2020-01-15 06:27 | NUR ---
Pt in bed asleep, no s/sx of distress noted, bed in low and locked position, call arriola within reach will report off to oncoming staff nurse
[2020-01-15] MEDS: INSULIN REGULAR, HUMAN 100 UNIT/1 ML 3ML VIAL SQ SCH ×4 (07:30→20:30)
[2020-01-15] MEDS: METOPROLOL SUCCINATE 50 MG TAB XL PO SCH (08:56)
[2020-01-15] MEDS: ASCORBIC ACID 500 MG TAB PO SCH (08:56)
[2020-01-15] MEDS: DEXAMETHASONE PHOS 4MG/ML 5ML MULTIDOSE VIAL IV SCH (08:56)
[2020-01-15] MEDS: CHOLECALCIFEROL 400 UNIT TAB PO SCH (08:56)
[2020-01-15] MEDS: AMLODIPINE BESYLATE 5 MG TAB PO SCH (08:56)
[2020-01-15] MEDS: ZINC SULFATE 220 MG CAP PO SCH (08:56)
[2020-01-15] MEDS: APIXABAN 5 MG TABLET PO SCH ×2 (08:56→17:10)
[2020-01-15] MEDS: AZITHROMYCIN 500MG/NS 250 ML 250 ML IV SCH (08:56)
[2020-01-15] MEDS: ATORVASTATIN 40 MG TAB PO SCH (08:56)
--- NOTE | 2020-01-15 09:33 | Progress Note ---
DATE: Cardiology Progress Note SUBJECTIVE: Nursing reports no new concerns. The patient is feeling well. However, he is very afraid of going home. OBJECTIVE: VITAL SIGNS: Temperature 98.9, pulse 73, respiratory rate 21, blood pressure 178/89, and oxygen saturation 98% on 3 L nasal cannula. CARDIOVASCULAR MEDICATIONS: Atorvastatin 40 mg p.o. daily, metoprolol 50 mg p.o. daily, Eliquis 5 mg p.o. b.i.d., and amlodipine 5 mg p.o. daily. LABORATORY DATA: No new labs today. IMPRESSION: 1. Coronavirus disease-19 viral pneumonia. 2. Chest pain. 3. Elevated BNP. 4. Atrial fibrillation. 5. Hypertension. 6. Hyperlipidemia. 7. Diabetes mellitus. TELEMETRY: I have personally reviewed telemetry. This reflects rate controlled atrial fibrillation. RECOMMENDATIONS: Continue with the above-listed cardiac medications. Continue to monitor blood pressure closely. Continue Eliquis for CVA prophylaxis. Continue COVID-19 treatment per Infectious Disease. Continue to maintain this patient on telemetry. No ischemic evaluation is warranted at this time. We will continue to follow this patient. Re-initiate gentle diuresis. Dictated by Alee Matos NP MD ESTELLE Mora/MARI /[id number]
--- NOTE | 2020-01-15 10:23 | Progress Note ---
DATE: SUBJECTIVE: The patient still has some dyspnea with exertion. He is in atrial fibrillation with a controlled rate. PHYSICAL EXAMINATION: VITAL SIGNS: The blood pressure is 178/89, saturation is 98% on 3 L. Pulse is 73. HEENT: No facial swelling or erythema. CARDIAC: Reveals regular rate and rhythm with normal S1, S2. LUNGS: Auscultation of lungs reveals clear breath sounds bilaterally. There is no wheezing. ABDOMEN: Soft and nontender. There is no rebound or guarding. EXTREMITIES: No leg edema or calf tenderness. There is no cyanosis or clubbing. SKIN: No rashes. NEUROLOGICAL: No focal abnormalities. IMPRESSION: 1. Viral pneumonia and coronavirus disease-19 infection. 2. Paroxysmal atrial fibrillation. 3. Chronic systolic congestive heart failure. 4. Benign prostatic hypertrophy. PLAN: 1. Continue current antibiotics. 2. Continue dexamethasone. 3. Repeat CBC and CMP. 4. Repeat chest x-ray. 5. Continue oxygen. 6. Continue physical therapy. Stuart Perea MD [facility]/TAVOL /[id number]
[2020-01-15] MEDS: FUROSEMIDE 20 MG TAB PO SCH (10:25)
--- NOTE | 2020-01-15 10:57 | NUR ---
IM- progress note O/N see below ROS; unobtainable v/s revd PE tired appearing anicteric ns1s2 REDUCED BREATHSOUNDS soft nt nd no e/t skin dry n. affect awake; santana labs/meds revd A/P: Viral PNA- IV abx COVID19 infection- supporitve Chr A.fib- HR control HTN- home med HLD- meds BPH- flomax DM2- hab1c/lipds; ssi prop; scd Dipso; monitor closely 01/12 improving; cont care; 01-13 Hba1c/LDL .; cont supportive care. 01-14 d/c planning; pt refuses home, wants to go to SNF; PT; get O2 eval in am. Gray Rogers MD, PhD.
[2020-01-15 11:35] LABS: BASOPHILS % 0.1 % (0.0-1.0); HEMATOCRIT 41.9 % (38.2-49.6); HEMOGLOBIN 13.8 g/dL (14.0-18.0); LYMPHOCYTES # (AUTO) 0.9 (1.0-3.2); LYMPHOCYTES % 5.4 % (18.0-39.1); MEAN CORPUSCULAR HEMOGLOBIN 29.5 pg (28-32); MEAN CORPUSCULAR HGB CONC 32.9 g/dL (31-35); MEAN CORPUSCULAR VOLUME 89.5 fL (81-99); MONOCYTES # (AUTO) 0.6 (0.2-0.8); MONOCYTES % 3.7 % (4.4-11.3); NEUTROPHILS # (AUTO) 15.2 (2.1-6.9); NEUTROPHILS % 89.7 % (38.7-80.0); PLATELET COUNT 149 x10e3/uL (140-360); RED BLOOD COUNT 4.68 x10e6/uL (4.3-5.7); RED CELL DISTRIBUTION WIDTH 13.2 % (11.7-14.4)
[2020-01-15 11:56] LABS: ALANINE AMINOTRANSFERASE 73 IU/L (0-55); ALBUMIN 3.3 g/dL (3.5-5.0); ALBUMIN/GLOBULIN RATIO 1.2 (0.8-2.0); ALKALINE PHOSPHATASE 60 IU/L (40-150); ANION GAP 13.3 mmol/L (8-16); BLOOD UREA NITROGEN 15 mg/dL (7-26); BUN/CREATININE RATIO 19 (6-25); CALCIUM 8.5 mg/dL (8.4-10.2); CARBON DIOXIDE 28 mmol/L (22-29); CHLORIDE 106 mmol/L (98-107); CREATININE, SERUM 0.78 mg/dL (0.72-1.25); EST GLOMERULAR FILTRATION RATE > 60 ML/MIN (60-); GLUCOSE 169 mg/dL (74-118); POTASSIUM 4.3 mmol/L (3.5-5.1); SODIUM 143 mmol/L (136-145)
--- NOTE | 2020-01-15 13:35 | Diagnostic Imaging Report ---
EXAMINATION: CHEST SINGLE (PORTABLE) INDICATION: viral pneumonia COMPARISON: Chest radiograph 01/13/2020. FINDINGS: TUBES and LINES: None. LUNGS: Lungs are well inflated. There are patchy opacities in the right mid and bilateral lower lung zones. PLEURA: No pleural effusion or pneumothorax. HEART AND MEDIASTINUM: The cardiomediastinal silhouette is unremarkable. BONES AND SOFT TISSUES: No acute osseous abnormality. Status post median sternotomy. UPPER ABDOMEN: No free air under the diaphragm. IMPRESSION: Patchy bilateral opacities, which may reflect atypical infection versus atelectasis in the appropriate clinical setting. Signed by: Dr. Jack Vasquez MD on 01/15/2020 1:31 PM
[2020-01-15] MEDS ORDERED: DEXTROSE 50% SYRINGE 50 ML IV PRN (17:00)
[2020-01-15] MEDS ORDERED: INSULIN LISPRO 100 UNIT/1 ML 3ML VIAL SQ SCH (17:00)
[2020-01-15] MEDS: CEFTRIAXONE SOD 1 GM/NS 50 ML 50 ML IV SCH (17:09)
--- NOTE | 2020-01-15 20:08 | NUR ---
Dr Rogers roundcora on unit, reported BP 181/73, 68. New orders received.
[2020-01-15] MEDS: TAMSULOSIN HCL 0.4 MG CAP PO SCH (20:13)
[2020-01-15] MEDS: NIFEDIPINE CR 30 MG TAB PO SCH (20:16)
[2020-01-15] MEDS ORDERED: INSULIN REGULAR, HUMAN 100 UNIT/1 ML 3ML VIAL SQ SCH (21:00)
[2020-01-16] VITALS: BP 148/69
[2020-01-16] MEDS: GUAIFENESIN/DEXTROMETHORPHAN LIQD 5 ML UDC PO PRN (00:52)
--- NOTE | 2020-01-16 00:52 | NUR ---
Patient c/o cough and SOB. 02 sat 100% on 2L NC. Medicated PRN for cough and SOB. Tolerated well. Patient reports feeling better. Will continue to monitor.
[2020-01-16 04:00] VITALS: BP 127/64
--- NOTE | 2020-01-16 06:30 | NUR ---
Patient 02 sat 100% on 02 3L NC. Patient ambulated down gates per MD order. Patient 02 sat 88% on RA. Patient assisted back to room and place back on 3L NC. Will continue to monitor.
[2020-01-16] MEDS: INSULIN REGULAR, HUMAN 100 UNIT/1 ML 3ML VIAL SQ SCH ×2 (07:30→11:30)
[2020-01-16 08:00] VITALS: BP 151/74
[2020-01-16 08:38] VITALS: BP 151/74
--- NOTE | 2020-01-16 09:39 | NUR ---
Broach Grinder called pt's room to provided support - no answer. [facility] O: [phone]
[2020-01-16] MEDS: DEXAMETHASONE PHOS 4MG/ML 5ML MULTIDOSE VIAL IV SCH (09:54)
[2020-01-16] MEDS: APIXABAN 5 MG TABLET PO SCH (09:55)
[2020-01-16] MEDS: NIFEDIPINE CR 30 MG TAB PO SCH (09:55)
[2020-01-16] MEDS: AZITHROMYCIN 500MG/NS 250 ML 250 ML IV SCH (09:55)
[2020-01-16] MEDS: ATORVASTATIN 40 MG TAB PO SCH (09:55)
[2020-01-16] MEDS: METOPROLOL SUCCINATE 50 MG TAB XL PO SCH (09:55)
[2020-01-16] MEDS: ASCORBIC ACID 500 MG TAB PO SCH (09:55)
[2020-01-16] MEDS: FUROSEMIDE 20 MG TAB PO SCH (09:55)
[2020-01-16] MEDS: CHOLECALCIFEROL 400 UNIT TAB PO SCH (09:55)
[2020-01-16] MEDS ORDERED: ZINC SULFATE 50 MG CAP PO SCH (10:00)
[2020-01-16 12:00] VITALS: BP 133/73
--- NOTE | 2020-01-16 12:02 | Progress Note ---
DATE: Mr. Lobo remains on the floor. He is still apprehensive about going. He is concerned about infecting his family. I told him that he is really doing okay clinically. He is not any worse. He is using oxygen at 2 L just for comfort. He does not desaturate. I told him that his family already been infected. He needs to be home quarantine for 2 weeks. There is really no treatment needed at present time. He has been here for 4 days. I am going to stop his antibiotic. Continue with Tylenol and albuterol as needed. To continue with amlodipine. He is on Eliquis, atorvastatin and we will finish 10 days of dexamethasone. Continue with supportive care. The patient could be discharged home with home oxygen if meet the criteria. I am not so sure he going to SNF. We will discuss with the case management. We will discuss with the medical team. MD LUCIEN Das/MARI /[id number]
--- NOTE | 2020-01-16 12:34 | NUR ---
D/C summary Principal Dx: Viral PNA- IV abx COVID19 infection- supporitve Secondary Dx: Chr A.fib- HR control HTN- home med HLD- meds BPH- flomax DM2- hab1c/lipds; ssi prop; scd Dipso; monitor closely 01/12 improving; cont care; 01-13 Hba1c/LDL 6.; cont supportive care. 01-14 d/c planning; pt refuses home, wants to go to SNF; PT; get O2 eval in am. d/c home with PT and O2 stable f/u pcp 2-3 days d/c>35mins
--- NOTE | 2020-01-16 12:41 | NUR ---
WENT TO THE PATIENTS ROOM TO DISCHARGE THE PATIENT AND TO GET THE PHARMACY INFORMATION FOR THE DOCTOR TO CALL IN THE PATIENTS MEDICATION INTO THE PATIENTS PHARMACY; THE PATIENT HAD HIS NASAL CANULA UNDER HIS CHIN WITH NO SIGN OR SYMPTOMS OF SHORTNESS OF BREATH OR DIFFICULTY BREATHING. THE PATIENT REFUSED TO SIGN ANY PAPERWORK AND REFUSED TO GIVEN ANY INFORMATION. INFORMED THE FRUIT CANNER THAT WAS OUTSIDE THE ROOM. THE FRUIT CANNER TRIED TO CONTACT BEST TRUJILLO THAT IS ON THE PATIENTS PAPERWORK THE PERSON TO NOTIFY. SHAREE STATED TO THE FRUIT CANNER THAT SHE WAS AT WORK AND DID NOT WANT TO BE INVOLVED AND THAT SHE WAS AT WORK. THE FRUIT CANNER CONTACTED TO COME AND SPEAK WITH THE PATIENT ONCE AGAIN. NOTIFIED LEAD BI DEVELOPER.
--- NOTE | 2020-01-16 13:53 | NUR ---
RECEIVED THE PATIENTS PHARMACY INFORMATION [address] [id number] [facility] [id number] PHONE NUMBER [phone]. THIS WAS GIVEN TO DR. GUAN TO CALL IN MEDICATIONS FRO THE PATIENT.
--- NOTE | 2020-01-16 14:29 | NUR ---
PATIENT DISCHARGED HOME WITH HOME OXYGEN @ 3LPM/NC. PATIENT OFF THE UNIT @ 1425 VIA WHEELCHAIR ACCOMPANIED BY PCT TO THE LOBBY. PATIENT IN STABLE CONDITION, NO S/S OF DISTRESS NOTED. NO PAIN VOICED. IV ACCESS REMOVED WITH TIP INTACT. ALL PERSONAL ITEMS TAKEN WITH THE PATIENT. DISCHARGE TEACHING AND INSTRUCTION GIVEN TO THE PATIENT. PATIENT VERBALIZED UNDERSTANDING. ALL PAPERWORK GIVEN TO THE PATIENT. dR. GUAN CALLED IN THE PATIENTS MEDICATIONS INTO THE PATIENTS PHARMACY.
--- NOTE | 2020-01-16 16:38 | NUR ---
ORDERS FOR HOME 02; SATS ON ROOM AIR 88% CHOICE LETTER SIGNED BY PT USING INTERPRETOR FOR [facility] PH: [phone] FAX: [phone] FAXED 02 SATS AND OXYGEN ORDERS TO ABOVE NUMBER IMM IN [place] EXPLAINED VIA INTERPRETOR, SIGNED BY PT AND PUT IN CHART COPY OF CHOICE LETTER AND IMM GIVEN TO PT PORTABLE TANK TAKEN TO PT'S ROOM SPOKE WITH KAREN ALMONTE AT [facility] CELL [phone] AND EXPLAINED PT WENT HOME AT 2:30 WITH PORTABLE AND WILL NEED CONCENTRATOR DELIVERED TO HOME BY 6 PM, HE UNDERSTANDS AND SAYS HE ASSURES DELIVERY BY 6PM THIS EVENING
--- NOTE | 2020-01-16 17:39 | Progress Note ---
DATE: ADDENDUM: He is still very anxious about going home, although he talked to me for more than half an hour without oxygen on his nose. He is concerned that he may affect his or his daughter. I told him to do home quarantine. He is doing well, but probably he was exposed to the virus earlier. He called his primary care physician, I talked to him. He tried to call his daughter, went to the voicemail. I told him we have arranged for him to go home with oxygen at 2 L, to use Decadron 6 mg p.o. daily for 10 days, Ventolin inhaler two puffs q.8 hours p.r.n. cough, although my observations to him since I have been with him today several times, I do not see any cough. I told him that we will be more than happy if he gets worse to come back to our emergency room, we will be taking care of him or to call me. He can appeal my decision to Medicare if he wants to the Case Management was there, nurse was there. We got a manager risk management translate to him. It took me more than hour to arrange for home oxygen to arrange for him. He would need to be in home quarantine for 2 more weeks. I tried to answer all of his questions. Discussed with the Medical team at length. MD LUCIEN Das/MARI /[id number]
--- NOTE | 2020-01-16 18:44 | Progress Note ---
DATE: SUBJECTIVE: The patient is improved. He still has some dyspnea on exertion. He has no fevers. There is no nausea or vomiting. PHYSICAL EXAMINATION: VITAL SIGNS: The patient is afebrile. The blood pressure is 133/73, saturation is 100% on 3 L, and the pulse is 73. HEENT: No facial swelling or erythema. CARDIAC: Regular rate and rhythm with normal S1, S2. LUNGS: Auscultation of lungs reveals rhonchorous breath sounds bilaterally. There is no wheezing. ABDOMEN: Soft, nontender. There is no rebound or guarding. EXTREMITIES: There is no leg edema or calf tenderness. IMAGING DATA: Chest x-ray shows bilateral infiltrates. LABORATORY DATA: BUN to creatinine ratio is normal. Electrolytes are within normal limits. IMPRESSION: 1. Viral pneumonia and coronavirus disease-19 infection. 2. Paroxysmal atrial fibrillation. 3. Chronic systolic congestive heart failure. 4. Benign prostatic hypertrophy. PLAN: 1. Continue current antibiotics. 2. Continue dexamethasone. 3. The patient is scheduled for discharge today. 4. Arrange for home oxygen. Stuart Perea MD [facility]/TAVOL /[id number]
== END 2020-01-16 14:25 | disposition home or self-care (01) | DRG 177 ==
LOC: ER 15:53 → ERHOLD 01-12 01:04 → IMCU 01-12 03:45
PROVIDERS: ADMIT Internal Medicine; ATTEND Internal Medicine
DX: U07.1 COVID-19 (principal); J12.89 Other viral pneumonia; I50.22 Chronic systolic (congestive) heart failure; I11.0 Hypertensive heart disease with heart failure; N40.0 Benign prostatic hyperplasia without lower urinary tract symptoms; I48.0 Paroxysmal atrial fibrillation; E78.5 Hyperlipidemia, unspecified; E11.9 Type 2 diabetes mellitus without complications; E66.9 Obesity, unspecified; Z68.35 Body mass index [BMI] 35.0-35.9, adult
CPT/HCPCS: 36415; 71045; 80053; 80061; 81001; 82550; 82553; 82948; 83036; 83605; 83880; 84484; 85025; 85610; 85730; 87040; 87086; 87635; 93005; 93306; 96372; 97139; 99251; 99284; J0456; J0696; J1100; J1650; J1817; J1940; J2405; J7050